=== PATIENT | female | born 1950 | race Caucasian/White ===

== ENCOUNTER 2016-06-10 08:06 | Emergency (ER) | payer OTHER ==
[~2016-06-10] VITALS: Wt 59.0 kg
[2016-06-10] MEDS ORDERED: FOLI-49 PO (09:35)
[2016-06-10] MEDS ORDERED: MET25 PO (09:36)
[2016-06-10] MEDS ORDERED: LOSA1TAB19 PO (09:36)
[2016-06-10] MEDS ORDERED: AMLO2.5T78 PO (09:37)
[2016-06-10] MEDS ORDERED: HYDR200T39 PO (09:46)
[2016-06-10] MEDS ORDERED: PRED2.5T3 PO (09:46)
--- NOTE | 2016-06-10 09:58 | RADRPT ---
PROCEDURE: Chest x-ray CLINICAL INDICATION: Chest pain TECHNIQUE: Chest single view COMPARISON: None FINDINGS: The heart is normal in size. The pulmonary vessels are normal in caliber. The lungs are clear. Th e costophrenic angles are sharp. The visualized bony thorax is unremarkable. IMPRESSION: No acute cardiopulmonary disease. RPTAT: HH .Stevie Mathias MD, Date Time Electronically viewed and signed by .Stevie Mathias MD, MD on 06/10/2016 09:58 .W/
--- NOTE | 2016-06-10 10:25 | RADRPT ---
PROCEDURE: US DVT. CLINICAL INDICATION: Left lower extremity pain and swelling. TECHNIQUE: Multiple longitudinal and transverse images of the left lower extremity veins were obta ined with hernandes scale and color Doppler imaging. 2D grayscale measurements with compression, color D oppler flow, and augmentation was performed. The calf veins were interrogated as well. COMPARISON: No prior studies are available for comparison. FINDINGS: The left common femoral, superficial femoral and popliteal veins are normally compressible throughou t. Color flow demonstrates normal filling of the vessel. Normal waveforms are visualized and there is normal response to augmentation. The left posterior tibial vein is not visualized. IMPRESSION: 1. No evidence of a deep vein thrombosis involving the left lower extremity. 2. The left posterior tibial vein is not visualized. RPTAT: JJ .Petey Aceves MD, MD Date Time Electronically viewed and signed by .Petey Aceves MD, MD on 06/10/2016 10:25 .N/
[2016-06-10 10:29] LABS: CHLORIDE 104 mmol/L (97-110); INR 0.92; POTASSIUM 3.8 mmol/L (3.5-5.1); PROTIME 12.4 Sec (12.2-14.2); SODIUM 146 mmol/L (135-144)
[2016-06-10 10:30] LABS: PARTIAL THROMBOPLASTIN TIME 31.4 Sec (25.0-35.0)
[2016-06-10 10:32] LABS: CREATINE KINASE 80 IU/L (23-200)
[2016-06-10 10:32] LABS: ANION GAP 15 (8-16); BLOOD UREA NITROGEN 13 mg/dl (7-20); CARBON DIOXIDE 31 mmol/L (21-31); CREATININE 0.57 mg/dl (0.44-1.00); GLUCOSE 79 mg/dl (70-220)
[2016-06-10 10:33] LABS: CALCIUM 9.4 mg/dl (8.4-10.2)
[2016-06-10 10:38] LABS: BASOPHILS % 0.5 % (0.0-2.0); EOSINOPHILS # 0.1 10^3/ul (0.0-0.5); EOSINOPHILS % 1.8 % (0.0-7.0); HEMATOCRIT 39.6 % (37.0-47.0); HEMOGLOBIN 13.1 g/dl (12.0-16.0); LYMPHOCYTES # 2.2 10^3/ul (0.8-2.9); LYMPHOCYTES % 27.2 % (15.0-51.0); MEAN CORPUSCULAR HEMOGLOBIN 30.7 pg (29.0-33.0); MEAN CORPUSCULAR HGB CONC 33.1 g/dl (32.0-37.0); MEAN CORPUSCULAR VOLUME 92.7 fl (82.0-101.0); MEAN PLATELET VOLUME 7.3 fl (7.4-10.4); MONOCYTE # 0.7 10^3/ul (0.3-0.9); MONOCYTES % 9.2 % (0.0-11.0); NEUTROPHIL # 4.9 10^3/ul (1.6-7.5); NEUTROPHILS % 61.3 % (39.0-77.0); PLATELET COUNT 363 10^3/UL (140-440); RED BLOOD COUNT 4.27 10^6/ul (4.20-5.40); RED CELL DISTRIBUTION WIDTH 13.8 % (11.5-14.5)
[2016-06-10 10:39] LABS: CK-MB 1.43 ng/ml (0.0-2.4)
[2016-06-10 10:41] LABS: CONDITION 1
[2016-06-10 10:42] LABS: TROPONIN-I < 0.012 ng/ml (0.00-0.12)
--- NOTE | 2016-06-10 10:50 | ERD ---
ER Documentation Chief Complaint Date/Time DATE: 06/10/16 TIME: 10:48 Chief Complaint LEFT LOWER LEG PAIN SWELLING NO DEFORMITY OR REDNESS FOR 4 DAYS HPI This is a 65-year-old female who presents to the emergency room for evaluation of left lower leg pain and swelling. The patient states that she notices 4 days ago and the pain and swelling has not gone down. She denies any trauma to the area. She denies any numbness or tingling. She denies any recent travel, exogenous hormone use or previous history of similar complaints. ROS All systems reviewed and are negative except as per history of present illness. Medications Home Meds Reported Medications Hydroxychloroquine Sulfate* (Hydroxychloroquine Sulfate*) 200 Mg Tablet, 200 MG PO DAILY, TAB 06/10/16 Prednisone* (Prednisone*) 2.5 Mg Tablet, 2.5 MG PO DAILY, TAB 06/10/16 Amlodipine Besylate* (Amlodipine Besylate*) 2.5 Mg Tablet, 2.5 MG PO DAILY, #30 TAB 06/10/16 Methotrexate* (Methotrexate*) 2.5 Mg Tab, 20 MG PO WEEKLY, TAB 06/10/16 Losartan-Hydrochlorothiazide (Losartan-HCTZ) 50-12.5 Mg Tab, 1 TAB PO DAILY, TAB 06/10/16 Folic Acid* (Folic Acid*) 1 Mg Tablet, 1 MG PO DAILY, TAB 06/10/16 Allergies Allergies: Coded Allergies: No Known Allergy (Unverified , 06/10/16) PMhx/Soc Medical and Surgical Hx: pt denies Surgical Hx Hx Alcohol Use: No Hx Substance Use: No Hx Tobacco Use: No Smoking Status: Never smoker Physical Exam Vitals Vital Signs Date Time Temp Pulse Resp B/P Pulse Ox O2 Delivery O2 Flow Rate FiO2 06/10/16 08:24 98.5 62 20 205/100 99 Physical Exam INITIAL VITAL SIGNS: Reviewed by me GENERAL: The patient is well developed and appropriate for usual state of health in no apparent distress HEENT: Pupils equal, round, and reactive to light. EOMI. There is no scleral icterus. NECK: C-spine is soft and supple, there is no meningismus. There is no cervical lymphadenopathy. LUNGS: Clear to auscultation bilaterally. There are no rales, wheezes or rhonchi. HEART: Regular rate and rhythm, no murmurs, clicks, rubs or gallops. ABDOMEN: Soft, non-tender, non-distended. There are bowel sounds in all four quadrants. No rebound or guarding. EXTREMITIES: Soft tissue swelling noted over the left lower extremity greatest at the ankle, palpable dorsalis pedis and posterior tibial pulse equal on both sides NEUROLOGICAL: The patient moves all four extremities with 5/5 strength. Cranial nerves II - XII are intact. Normal gait. Alert and oriented SKIN: Superficial area of erythema on the left lower extremity just above the left medial malleolus there is no apparent rash or petechiae. HEME/LYMPHATIC: There is no evidence of excessive bruising or lymphedema. PSYCHIATRIC: The patient does not appear anxious or depressed. Result Diagram: 06/10/1640 06/10/1640 Results 24 hrs Laboratory Tests Test 06/10/16 09:40 06/10/16 10:30 Activated Partial Thromboplast Time 31.4Sec Anion Gap 15 Basophils # 0.010^3/ul Basophils % 0.5% Blood Morphology Comment Blood Urea Nitrogen 13mg/dl Calcium Level 9.4mg/dl Carbon Dioxide Level 31mmol/L Chloride Level 104mmol/L Creatinine 0.57mg/dl Eosinophils # 0.110^3/ul Eosinophils % 1.8% Glucose Level 79mg/dl Hematocrit 39.6% Hemoglobin 13.1g/dl INR International Normalized Ratio 0.92 Lymphocytes # 2.210^3/ul Lymphocytes % 27.2% Mean Corpuscular Hemoglobin 30.7pg Mean Corpuscular Hemoglobin Concent 33.1g/dl Mean Corpuscular Volume 92.7fl Mean Platelet Volume 7.3fl Monocytes # 0.710^3/ul Monocytes % 9.2% Neutrophils # 4.910^3/ul Neutrophils % 61.3% Nucleated Red Blood Cells # 0.010^3/ul Nucleated Red Blood Cells % 0.0/100WBC Platelet Count 32365^3/UL Potassium Level 3.8mmol/L Prothrombin Time 12.4Sec Prothrombin Time Ratio 1.0 Red Blood Count 4.2710^6/ul Red Cell Distribution Width 13.8% Sodium Level 146mmol/L Troponin I < 0.012ng/ml Pending White Blood Count 8.010^3/ul Creatine Kinase 80IU/L Creatine Kinase Index 1.8 Creatinine Kinase MB (Mass) 1.43ng/ml Procedures/MDM Ultrasound left lower extremity: No DVT Chest X-ray 1V Interpreted by me: Soft Tissue: No acute abnormalities Bones: No acute abnormalities Mediastinum/Cardiac Silhouette/Lungs: [No acute abnormalities] EKG: Rate/Rhythm: [Normal Sinus Rhythm] QRS, ST, T-waves: [No changes consistent w/ acute ischemia] Impression: [No evidence of ischemia or arrhythmia] This 65-year-old female presents to the emergency room for evaluation of left lower extremity swelling. I did obtain ultrasound to rule out a DVT and there is no sign of DVT on ultrasound. The superficial area of cellulitis was noted. Lab work does not show any disseminated infection, no leukocytosis. This patient is afebrile. The patient will be discharged home with a prescription for Keflex, and Bactrim. I advised her to elevate the leg to promote circulation and lymph drainage. She verbalized understanding. She is neurovascularly intact in the leg distal to the swelling. Departure Diagnosis: Primary Impression: Left leg cellulitis Condition: Stable OTIS LARA DO Jun 10, 2016 10:50
[2016-06-10] MEDS ORDERED: CEPH-443 PO (10:52)
[2016-06-10] MEDS ORDERED: BACTDS PO (10:52)
[2016-06-10 10:58] LABS: TROPONIN-I < 0.012 ng/ml (0.00-0.12)
[2016-06-10 11:24] VITALS: BP 149/67; PULSE 77; RESP 18
== END 2016-06-10 11:25 | disposition home or self-care (01) ==
LOC: E/R 08:06
DX: L03.116 Cellulitis of left lower limb (principal); R40.2252 Coma scale, best verbal response, oriented, at arrival to emergency department; R07.9 Chest pain, unspecified; R40.2362 Coma scale, best motor response, obeys commands, at arrival to emergency department; R40.2142 Coma scale, eyes open, spontaneous, at arrival to emergency department
CPT/HCPCS: 36415; 71010; 80048; 82550; 82553; 84484; 85025; 85610; 85730; 93005; 93971